=== PATIENT | female | born 2000 | race Caucasian/White ===

== ENCOUNTER 2023-07-17 07:41 | Outpatient (RCR) | payer OTHER, SELFPAY ==
[2023-07-15 11:23] LABS: Beta HCG Quantitative 130.77 mIU/ML
[2023-07-17 08:27] LABS: Beta HCG Quantitative 345.61 mIU/ML
== END 2023-10-13 23:59 | disposition home or self-care (01) ==
LOC: ANHLAB 07:41
PROVIDERS: Visit Provider Obstetrics & Gynecology
DX: O20.0 Threatened abortion (principal); Z3A.00 Weeks of gestation of pregnancy not specified
CPT/HCPCS: 36415; 84702; 85461; 86850; 86900; 86901

== ENCOUNTER 2023-10-20 19:45 | Emergency (ER) | payer OTHER, SELFPAY ==
--- NOTE | ~2023-10-20 | US_ITS ---
EXAMINATION: 1. US OB follow up 2. US OB transvaginal DATE: 10/20/2023 21:40 INDICATION: Vaginal bleeding. TECHNIQUE: Real-time transabdominal and transvaginal pelvic ultrasound was performed. COMPARISON: None. FINDINGS: TRANSABDOMINAL ULTRASOUND: There is an intrauterine gestational sac. There is a single fetus in varia ble presentation. heart motion is identified measuring 155 beats per minute (bpm) by M-mode Dop pler. The amniotic fluid index is 11.1 cm, which is normal. The ovaries are not visualized. There is no free fluid in the pelvis. TRANSVAGINAL ULTRASOUND: The cervical length is 4.4 cm, which is normal. The placenta is anterior, 2. 2 cm from the cervix. IMPRESSION: 1. Single living intrauterine gestation. 2. Normal placenta. Reviewed, dictated and finalized at location E. NSE TRAVEL ADMINISTRATOR IMPRESSION: 1. Single living intrauterine gestation. 2. Normal placenta.
[2023-10-20 19:53] VITALS: BP 100/69; PULSE 88; RESP 20; TEMP 36.4; O2SAT 100
--- NOTE | 2023-10-20 21:15 | PC.NURSE ---
Pt to US at this time.
--- NOTE | 2023-10-20 22:49 | ED.PREGNANCY ---
HPI - General Chief complaint: Vaginal Bleeding Stated complaint: vaginal bleeding Time Seen by Provider: 10/20/23 21:05 Source: patient Mode of arrival: ambulatory Limitations: no limitations History of Present Illness HPI Narrative: Patient is a 22-year-old female who presents to the ED with report of vaginal spotting. Patient is and currently 17 weeks gestation. She reports she fell down approximately 5 stairs today. She landed mostly on her knees at the bottom of the stairs. She believe she may have hit her abdomen, but denied direct trauma to her abdomen. She has some cramping throughout the lower abdomen initially after the fall and did notice a small amount of light pink vaginal spotting with wiping afterwards. She contacted her OBGYN's office, Dr. Chiu with [facility], and was referred to the ED for further evaluation. Patient denies any further episodes of bleeding or spotting. Denies any further abdominal pain. Denies nausea or vomiting, fevers, other injuries or pain. Related Data Allergies Allergy/AdvReac Type Severity Reaction Status Date / Time No Known Allergies Allergy Verified 10/20/23 20:55 Review of Systems Review of Systems: CONSTITUTIONAL: Denies fever, chills, or sweats. CARDIOVASCULAR: Denies chest pain. RESPIRATORY: Denies dyspnea. GASTROINTESTINAL: See HPI. GENITOURINARY: See HPI. MUSCULOSKELETAL: Denies back pain, extremity pain, myalgia. All systems reviewed & are unremarkable except as noted in HPI and below Exam Narrative: GENERAL: Well appearing, well-nourished, non-toxic, in no acute distress. HEAD: Normocephalic, atraumatic. RESPIRATORY: Airway patent, respirations nonlabored. Clear to auscultation bilaterally, no rales, rhonchi, wheezing. CARDIOVASCULAR: Regular rate and rhythm ABDOMINAL: Soft, uterus gravid just below umbilicus, no significant tenderness throughout the abdomen, nondistended. Normoactive BS. PELVIC: Normal external genitalia. Trace amount of light pink spotting in vaginal vault, no dark red bleeding, no evidence of hemorrhage or pooling of fluid. Physiologic discharge present. Cervix appears normal and closed. MUSCULOSKELETAL: Moves all extremities. No gross deformities. SKIN: Warm, dry, normal color. NEURO: A&O X3. Speech clear. Cranial nerves II-XII grossly intact. Steady gait. No ataxic movements. PSYCHIATRIC: Appropriate mood and affect. Normal interaction. Course Vital Signs Vital signs: Vital Signs Temperature 97.5 F L 10/20/23 19:53 Pulse Rate 88 10/20/23 19:53 Respiratory Rate 20 10/20/23 19:53 Blood Pressure 100/69 10/20/23 19:53 Pulse Oximetry 100 10/20/23 19:53 Oxygen Delivery Room Air 10/20/23 19:53 Temperature 97.5 F L 10/20/23 19:53 Pulse Rate 82 10/20/23 22:58 Respiratory Rate 20 10/20/23 22:58 Blood Pressure 102/71 10/20/23 22:58 Pulse Oximetry 100 10/20/23 22:58 Oxygen Delivery Room Air 10/20/23 19:53 MDM - OB/Uterine Contractions MDM Narrative Medical decision making narrative: Patient presented to ED status post fall downstairs, possible injury to abdomen with episode of vaginal spotting afterwards. , currently 17 weeks gestation. Ultrasound obtained and reassuring, showing single live intrauterine gestation, normal placenta, good heart tones. No free fluid in the pelvis. Pelvic exam performed and without evidence for any further significant bleeding, cervix appeared normal and closed. Discussed case with Dr. Chiu, patient's OBGYN, agreed with reassuring workup, advised patient can be discharged, office will contact her tomorrow to make follow-up appointment. No further injuries from the fall. No head injury or LOC. Discussed these recommendations with patient. Discussed monitoring bleeding closely, strict return precautions. Patient in agreement with plan. Will be discharged. D/C in stable condition. Medical Records Attestation: I revi
[2023-10-20 22:58] VITALS: BP 102/71; PULSE 82; RESP 20; O2SAT 100
== END 2023-10-20 23:01 | disposition home or self-care (01) ==
PROVIDERS: Emergency Provider Physician Assistant
DX: O26.852 Spotting complicating pregnancy, second trimester (principal); Z3A.17 17 weeks gestation of pregnancy; W10.9XXA Fall (on) (from) unspecified stairs and steps, initial encounter
CPT/HCPCS: 76816; 76817; 99284

== ENCOUNTER 2024-02-27 12:02 | Observation (INO) | payer OTHER, SELFPAY ==
[2024-02-27 12:30] VITALS: BMI 29.5
[2024-02-27 12:39] VITALS: BP 115/77; PULSE 87
[2024-02-27 12:45] VITALS: BP 107/76; PULSE 79
[2024-02-27 13:00] VITALS: BP 113/72; PULSE 70
[2024-02-27 13:15] VITALS: BP 114/77; PULSE 70
[2024-02-27 13:30] VITALS: BP 115/68; PULSE 75
--- NOTE | 2024-03-04 12:08 | PM.OBTRLD ---
OB - Triage/Final Diagnosis Visit Information Comments/Additional reasons for admission: I have assessed the risk for this patient, Cristal Mo, and determined that she would benefit from observation care. Final Diagnosis (1) Irregular contractions: Code(s): O47.9 - False labor, unspecified Status: Acute
== END 2024-02-27 14:00 ==
PROVIDERS: Admitting Provider Obstetrics & Gynecology; Visit Provider Obstetrics & Gynecology
DX: O47.03 False labor before 37 completed weeks of gestation, third trimester (principal); Z3A.36 36 weeks gestation of pregnancy
CPT/HCPCS: G0378; G0379

== ENCOUNTER 2024-02-28 14:23 | Observation (INO) | payer OTHER, SELFPAY ==
[2024-02-28 15:00] VITALS: BP 117/73; PULSE 68
[2024-02-28 15:15] VITALS: BP 130/83; PULSE 67
[2024-02-28] MEDS: TERBUTALINE SULFATE 1 MG/ML VIAL 0.25 MG SUB-Q (15:48)
[2024-02-28] MEDS: NIFEdipine 30 MG TAB.ER.24 PO (16:07)
[2024-02-28 16:30] VITALS: BP 121/80; PULSE 87
[2024-02-28 17:02] VITALS: BMI 29.5
--- NOTE | 2024-03-28 20:34 | PM.OBTRLD ---
OB - Triage/Final Diagnosis Visit Information Comments/Additional reasons for admission: I have assessed the risk for this patient, Cristal Mo, and determined that she would benefit from observation care. Final Diagnosis (1) False labor: Code(s): O47.9 - False labor, unspecified Status: Acute
== END 2024-02-28 17:15 | disposition home or self-care (01) ==
PROVIDERS: Admitting Provider Obstetrics & Gynecology; Visit Provider Obstetrics & Gynecology
DX: O47.03 False labor before 37 completed weeks of gestation, third trimester (principal); Z3A.36 36 weeks gestation of pregnancy
CPT/HCPCS: 96372; A9270; G0378; G0379; J3105

== ENCOUNTER 2024-03-15 20:16 | Observation (INO) | payer OTHER, SELFPAY ==
[2024-03-15] VITALS (21 sets, daily range): BP systolic 117; BP diastolic 67; PULSE 63–87; TEMP 36.2; O2SAT 97–100; BMI 29.8
--- NOTE | ~2024-03-15 | US_ITS ---
EXAMINATION: US OB limited w BPP DATE: 03/16/2024 08:00 INDICATION: Indeterminate heart rate. Third trimester. TECHNIQUE: Real-time pelvic ultrasound was performed. COMPARISON: Ultrasound 10/20/2023 FINDINGS: There is a single living fetus in vertex presentation. The placenta is anterior. heart rate is 133 beats per minute (bpm). The fluid index is 12.0 cm, which is normal. Biophysical profile performed by the technologist: breathing (30 sec sustained breathing in 30 minutes): 0 out of 2 movement (3 gross body movements in 30 minutes): 2 out of 2 tone (one episode of snlsdew-jqjbvzjlj-irufija limb movement): 2 out of 2 Amniotic fluid pocket (2 cm): 2 out of 2 Total score: 6 out of 8 IMPRESSION: 1. Single living fetus in vertex presentation. 2. Biophysical profile 6 out of 8. Reviewed, dictated and finalized at location E.
--- NOTE | 2024-03-15 20:16 | PC.NURSE ---
Pt arrives to unit with decreased movement.
--- NOTE | 2024-03-15 20:51 | PC.NURSE ---
Called Jg Talamantes CNM, update on pt, decreased movement, indeterminate tracing, and pt marking movement. Orders received to administer a 500 ml bolus LR and call with an update.
--- NOTE | 2024-03-15 21:13 | PC.NURSE ---
Jg Talamantes CNM called, reviewed tracing, baseline is indeterminate at the time. Orders received to call after LR is administration.
[2024-03-15] MEDS: LACTATED RINGERS 1,000 ML 999 ML IV CONT (21:27)
--- NOTE | 2024-03-15 22:03 | PC.NURSE ---
Addendum entered by Rina Covington RN 03/16/24 04:30: Admit pt to observation due to indeterminate tracing. Original Note: Jg Talamantes CNM reviewed tracing, orders received to admit pt to observation with a BPP and JJ in the morning.
--- NOTE | 2024-03-15 22:03 | PC.NURSE ---
Updated Jg Talamantes CNM on pt and reviewed tracing. Orders received to admit pt as observation, BPP with JJ tomorrow morning, continuous heart rate monitoring, regular diet, LR at 125 ml/hr, and administer ambien 5 mg at bedtime.
--- NOTE | 2024-03-15 22:10 | PC.NURSE ---
2100-Providers reviewed tracing, indeterminate baseline and decelerations with moderate variability. Irregular contractions per toco, none per pt. 2210-Providers reviewed tracing, indeterminate baseline and decelerations with moderate variability. Irregular and rare contractions per toco, none per pt. Orders received to admit pt to monitor due to indeterminate tracing.
--- NOTE | 2024-03-15 22:34 | OBADM ---
This patient, Cristal Mo, admitted to the OB room OB Post 116 for observation. Patient/family oriented to hospital policies and general routines including ID bracelet, bed and alarms, visiting hours, pain management, procedures, bathroom and other care routines, personal items, smoking policy, room service/diet, and visiting hours. Patient/Family are encouraged to report perceived risks to care and to ask questions if they do not understand what they are told or what they should do.
[2024-03-16] VITALS (86 sets, daily range): PULSE 46–99; O2SAT 90–100
[2024-03-16] MEDS: LACTATED RINGERS 1,000 ML 125 ML IV CONT (02:25)
--- NOTE | 2024-03-17 07:47 | PM.OBTRLD ---
OB - Triage/Final Diagnosis Visit Information Date of evaluation: 03/15/24 Reason for evaluation: decreased movement Comments/Additional reasons for admission: I have assessed the risk for this patient, Cristal Mo, and determined that she would benefit from observation care.
== END 2024-03-16 08:33 | disposition home or self-care (01) ==
PROVIDERS: Admitting Provider Obstetrics & Gynecology; Visit Provider Obstetrics & Gynecology
DX: O36.8130 Decreased fetal movements, third trimester, not applicable or unspecified (principal)
CPT/HCPCS: 76815; 76819; 96360; 96361; G0378; G0379; J7120

== ENCOUNTER 2024-03-18 04:56 | Inpatient (IN) | payer OTHER, SELFPAY ==
[2024-03-18] VITALS (161 sets, daily range): BP systolic 73–175; BP diastolic 17–130; PULSE 60–156; RESP 16–18; TEMP 36.4–36.9; O2SAT 90–100; BMI 29.7
[2024-03-18 05:35] LABS: Basophils Percent Auto 0.1 % (0.2-1.2); Eosinophils Absolute Auto 0.1 K/mm3 (0-0.3); Eosinophils Percent Auto 0.7 % (0-4.4); Hematocrit 37.6 % (37.0-47.0); Hemoglobin 12.4 g/dL (12.0-15.0); Immature Granulocyte Absolute 0.03 K/mm3 (0.00-0.031); Immature Granulocyte Percent A 0.4 % (0-0.5); Lymphocytes Absolute Auto 1.64 K/mm3 (0.9-3.2); Lymphocytes Percent Auto 20.2 % (18.3-44.2); Mean Corpuscular Hemoglobin 28.6 pg (26-34); Mean Corpuscular Volume 86.6 fl (80-100); Monocytes Absolute Auto 0.6 K/mm3 (0.1-0.6); Neutrophils Absolute Auto 5.8 K/mm3 (1.3-6.7); Neutrophils Percent Auto 71.6 % (45.5-73.1); Platelet Count Result 182 k/mm3 (150-375); Red Blood Count 4.34 M/mm3 (4.2-5.4); Red Cell Distribution Width 13.3 % (11.5-14.5); White Blood Count 8.1 K/mm3 (4.5-10.0)
--- NOTE | 2024-03-18 05:35 | LDADM ---
This patient, Cristal Mo, was admitted to Labor/Delivery/Recovery 102 on 03/18/24 at 04:56. Plans for labor, pain management and were discussed with patient. Patient/family oriented to hospital policies and general routines including ID bracelet, bed and alarms, visiting hours, pain management, procedures, bathroom and other care routines, personal items, smoking policy, room service/diet and guest tray routines, security routines, and visiting hours. Patient/Family are encouraged to report perceived risks to care and to ask questions if they do not understand what they are told or what they should do. See OBIX for further documentation.
[2024-03-18 06:28] LABS: HIV 1/2 Ab P24 Ag Result Negative (Negative)
--- NOTE | 2024-03-18 07:44 | WPDOBADMIT ---
Obstetrics - Admit Note Admission Note: record reviewed. No pertinent additions to the history and/or any subsequent changes in the physical findings that are not consistent with the expected course of the were found. Additions to the history and/or subsequent changes in the physical findings follow. Admit for elective IOL -/-1 AROM moderate amount of clear, odorless fluid, anticipate vaginal delivery
[2024-03-18] MEDS: OXYTOCIN 30 UNITS/NS 500 ML 30 UNITS/500 ML BAG IV CONT (07:59)
[2024-03-18] MEDS: LACTATED RINGERS 1,000 ML 125 ML IV CONT ×2 (07:59→10:00)
--- NOTE | 2024-03-18 09:36 | WPDANESEPP ---
Anes - Eval Pre Procedure Procedure: labor epidural Date/Time: 03/18/24 09:36 Surgeon: Nkechi Preop Diagnosis: pain during labor Pre Op Diagnosis: IOL Patient Data Age: 23 Gender: F Height: 1.7 m Weight: 86 kg Last Vital Signs Temp 36.4 C L 03/18/24 07:00 Pulse 78 03/18/24 09:00 Resp 16 03/18/24 07:00 BP 120/72 03/18/24 09:00 Pulse Ox 98 03/18/24 09:34 O2 Del Method Room Air 03/18/24 04:56 Allergies Allergy/AdvReac Type Severity Reaction Status Date / Time No Known Allergies Allergy Verified 03/15/24 23:09 Home Medications Medication Instructions Recorded Confirmed Type prenat.vits,wanda,lfs-bbtg-ljmlf 1 tablet PO DAILY 02/27/24 03/15/24 History calcium carb-vitamin D3 ER 600 mg 1 tablet PO DAILY 02/28/24 03/15/24 History (1,500 mg)-500 unit tablet,ER 24 hr Laboratory Tests 03/18/24 05:15 WBC 8.1 K/mm3 (4.5-10.0) RBC 4.34 M/mm3 (4.2-5.4) Hgb 12.4 g/dL (12.0-15.0) Hct 37.6 % (37.0-47.0) MCV 86.6 fl (80-100) MCH 28.6 pg (26-34) MCHC 33.0 g/dl (32-36) RDW 13.3 % (11.5-14.5) Plt Count 182 k/mm3 (150-375) MPV 12.0 H fl (7.4-10.4) Immature Gran % (Auto) 0.4 % (0-0.5) Neut % (Auto) 71.6 % (45.5-73.1) Lymph % (Auto) 20.2 % (18.3-44.2) [place] % (Auto) 7.0 % (2.6-8.5) Eos % (Auto) 0.7 % (0-4.4) Baso % (Auto) 0.1 L % (0.2-1.2) Lymph # (Auto) 1.64 K/mm3 (0.9-3.2) [place] # (Auto) 0.6 K/mm3 (0.1-0.6) Eos # (Auto) 0.1 K/mm3 (0-0.3) Baso # (Auto) 0.0 K/mm3 (0.0-0.1) Abs Immat Gran (auto) 0.03 K/mm3 (0.00-0.031) Absolute Neuts (auto) 5.8 K/mm3 (1.3-6.7) Absolute Nucleated RBC 0.000 K/mm3 (0.0-0.012) Nucleated RBC % 0.0 % (0.0-0.2) RPR Pending HIV 1&2 Ab/P24 Ag 4thGn Negative (Negative) Blood Type O Positive Antibody Screen Negative Patient hx anesthesia problems: none Family hx anesthesia problems: none Results Review: All pre-operative results and documents have been reviewed as part of the pre-operative evaluation. [facility] Family History Family History Grandparent Hypertension Social History Social History Smoking status: Never smoker Second hand tobacco smoke exposure: No Substance use: never Do You Feel Safe in your Home?: Yes Lack of Transportation: No Lack of Food: Never True Current Housing: I Have Housing Concerned About Future Housing: No Difficulty Paying Gas/Electric Bills: No Difficulty Paying for Meds: No Currently Unemployed: No Education: Bachelor's Degree Difficulty w/ Childcare or Family Care: No Spiritual care concerns: No Exam Day of Procedure 03/18/24 09:36 Patient weight: normal Heart: regular rate and rhythm Lungs: normal air movement Airway: Mallampati scale class II Neurological: alert and oriented
[2024-03-18 11:37] LABS: Rapid Plasma Reagin Non-Reactive (NonReactive)
[2024-03-18] MEDS: ONDANSETRON INJ 4 MG/2 ML VIAL IV PUSH (15:55)
[2024-03-18] MEDS: OXYTOCIN 30 UNITS/NS 500 ML 30 UNITS/500 ML BAG 999 UNITS IV CONT (17:55)
--- NOTE | 2024-03-18 18:08 | PM.OBPRVD ---
OB - Vaginal Delivery Note Procedure Delivery date: 03/18/24 Induction method: AROM and Per Pitocin Protocol Delivery monitor: External FHT and Internal Uterine Route of delivery: Episiotomy description: None Laceration Description: None Specimen: No Quantitative Blood Loss (ml): 150 Anesthesia type: Epidural Disposition: Floor Complications: No immediate complications Baby Date of : 03/18/24 Time of : 17:51 Weeks of gestation at delivery: 39 gender: Male Weight (pounds): 7 Weight (ounces): 7 presentation: vertex position: Left Occiput Anterior Placenta delivery description: Spontaneous Cord Vessel Description: 3 Vessels, Nuchal Cord (x2), Tight and Around Body (x2 tight) Narrative: baby to nursery nurse for evaluation, mother and baby in stable condition
[2024-03-18] MEDS: OXYTOCIN 30 UNITS/NS 500 ML 30 UNITS/500 ML BAG 125 UNITS IV CONT (18:23)
--- NOTE | 2024-03-18 20:28 | OBPPTRN ---
Patient transferred to post room #287 via (wheelchair). Support person present. Oriented to unit, room, information board, rooming in, admission packet and security measures. Patient verbalizes understanding.
[2024-03-18] MEDS: ACETAMINOPHEN 325 MG TABLET 650 MG PO (21:18)
[2024-03-19] VITALS: BP 118/78; PULSE 93; RESP 16; TEMP 36.5; O2SAT 97
[2024-03-19 05:24] LABS: Hematocrit 32.7 % (37.0-47.0); Hemoglobin 10.5 g/dL (12.0-15.0)
[2024-03-19] MEDS: DOCUSATE SODIUM 100 MG CAPSULE PO ×2 (07:12→17:41)
[2024-03-19] MEDS: MULTIVIT/MIN/PREN/FOL AC/IRON TABLET 1 TAB PO (07:12)
[2024-03-19 07:50] VITALS: BP 111/67; PULSE 75; RESP 18; TEMP 36.3; O2SAT 98
--- NOTE | 2024-03-19 07:53 | PM.OBPNVD ---
OB - PN: Subj Subjective Date/time seen: 03/19/24 07:53 Interval history: pp day 1 breast and bottle feeding doing well OB - PN: Obj Data Labs 03/19/24 04:08 Labs: Laboratory Results - last 24 hr 03/18/24 03/19/24 05:15 04:08 Hgb 10.5 L Hct 32.7 L RPR Non-reactive OB - PN A/P Plan day: 1 Time Spent With Patient Time: Total time spent is greater than 50% in coordination of care (as documented) at patient's floor/unit and/or counseling patient: Review of Systems Review of Systems: All systems reviewed & are unremarkable except as noted in HPI and below Exam Const: General: cooperative Resp: Effort & Inspection: normal respiratory effort Cardio: Rate: regular rate Rhythm: regular rhythm GI: Other: soft Skin: General skin exam: normal color Neuro: General: patient oriented x3 Extrem: Right lower extremity: normal to inspection Left lower extremity: normal to inspection Psych: Appearance: grossly normal
--- NOTE | 2024-03-19 07:57 | WPDANLDPN2 ---
Anes-Prog Note L&D Date/Time: 03/19/24 07:57 Comfortable throughout: labor and delivery Neuraxial method: epidural Epidural/Spinal procedure site: tender Neuro status: Neuro function grossly intact. Cardiovascular status: normal Respiratory status: normal Airway patency: baseline Mental status: baseline Post-Op hydration status: normal Vital Signs: Last Vital Signs Temp 36.5 C 03/19/24 00:00 Pulse 93 03/19/24 00:00 Resp 16 03/19/24 00:00 BP 118/78 03/19/24 00:00 Pulse Ox 97 03/19/24 00:00 O2 Del Method Room Air 03/18/24 21:00 Pain score (VAS): 2/10 I/O: Intake & Output 03/18/24 03/18/24 03/19/24 15:59 23:59 07:59 Intake Total 1000 Balance 1000 Post-procedural complaints: none Patient feedback: Patient satisfied with anesthetic care.
[2024-03-19 12:05] VITALS: BP 115/72; PULSE 83; RESP 16; TEMP 36.8; O2SAT 98
[2024-03-19 15:15] VITALS: BP 115/77; PULSE 91; RESP 16; TEMP 36.7; O2SAT 97
[2024-03-19 19:00] VITALS: BP 144/84; PULSE 87; RESP 18; TEMP 36.7
[2024-03-19] MEDS: IBUPROFEN 600 MG TABLET PO (19:28)
--- NOTE | 2024-03-20 05:48 | PM.OBPNVD ---
OB - PN: Subj Subjective Date/time seen: 03/20/24 05:48 Interval history: pp day 1 breast and bottle feeding doing well Patient comments: no complaints, pain well controlled and tolerating diet OB - PN: Obj Data Labs 03/19/24 04:08 OB - PN A/P Plan day: 2 Plan: routine care and discharge home Time Spent With Patient Time: Total time spent is greater than 50% in coordination of care (as documented) at patient's floor/unit and/or counseling patient: Exam Const: General: comfortable and no acute distress Resp: Effort & Inspection: normal respiratory effort Auscultation: no rales, no rhonchi and no wheezes Cardio: Rate: regular rate Heart sounds: no click, no murmurs and no rubs GI: GI Palp: Yes Soft to palpation and No Tenderness to palpation present (GI) Auscultation: normal bowel sounds Extrem: General: normal to inspection, no pedal edema and no calf tenderness
--- NOTE | 2024-03-20 05:49 | PM.OBDSVD ---
DS: Admitting Diagnosis Discharge Date March 20, 2024 Admitting Diagnosis term DS: Discharge Diagnosis Discharge Diagnosis (1) Post term , delivered: Code(s): O48.0 - Post-term Status: Acute OB - DS: Summary OB Procedures : None OB Procedures Intrapartum: Spontaneous Vag Delivery OB Procedures: : None Peripartum Data Laceration Description: None Episiotomy description: None Time Spent with Patient Time attestation: Total time spent providing and/or coordinating discharge services: Discharge Plan Discharge Discharging Clinician: Andrea Arboleda Patient Disposition: Home, Self-Care Activity: pelvic rest Diet: regular Patient Instructions: Antibiotic Form Stand Alone Forms: General Discharge Information Follow-up/Referrals: Andrea Arboleda MD [Physician] - Discharge Medications: Continued prenat.vits,wanda,hzf-xrko-aasgi Tablet 1 tablet PO DAILY calcium carbonate-vitamin D3 600 mg(1,500mg) -500 unit Tablet Extended Release 24 Hr 1 tablet PO DAILY Date of admission: 03/18/24 04:56 Primary Care Provider: UNKNOWN,DOCTOR Admitting Provider: Andrea Arboleda Attending physician on admission: Andrea Arboleda Condition: Stable
[2024-03-20 07:40] VITALS: BP 103/66; PULSE 72; RESP 18; TEMP 36.8; O2SAT 98
[2024-03-20] MEDS: DOCUSATE SODIUM 100 MG CAPSULE PO (07:41)
[2024-03-20] MEDS: MULTIVIT/MIN/PREN/FOL AC/IRON TABLET 1 TAB PO (07:41)
[2024-03-20] MEDS: IBUPROFEN 600 MG TABLET PO (07:47)
[2024-03-22 10:33] VITALS: BP 110/76; PULSE 78; RESP 18; TEMP 36.8; O2SAT 100
== END 2024-03-20 10:00 | disposition home or self-care (01) | DRG 807 ==
LOC: ANHLDR 04:59 → ANHOB2 20:33
PROVIDERS: Admitting Provider Obstetrics & Gynecology; Referring Provider Advanced Practice Midwife; Visit Provider Obstetrics & Gynecology
DX: O69.1XX0 Labor and delivery complicated by cord around neck, with compression, not applicable or unspecified (principal); Z37.0 Single live birth; Z3A.39 39 weeks gestation of pregnancy
CPT/HCPCS: 36415; 76815; 76819; 85014; 85018; 85025; 86592; 86703; 86850; 86900; 86901; 96360; 96361; A9270; G0378; G0379; G0432; J2405; J2590; J2795; J7120